=== PATIENT | female | born 1985 | race Caucasian/White ===

== ENCOUNTER 2025-06-23 22:04 | Observation (INO) | payer OTHER, SELFPAY ==
[2025-06-23 18:22] VITALS: BP 113/79
[2025-06-23 18:41] VITALS: BP 123/80
--- NOTE | 2025-06-23 18:51 | ED.GENMED ---
History of Present Illness
General
Chief Complaint: Abnormal Lab Value
Source: patient and spouse
Exam Limitations: none
Time Seen by Provider: 06/23/25 18:37
Nursing documentation reviewed up to this point in time: agreed with
History of Present Illness
History of Present Illness:
Note:
CHIEF COMPLAINT(S)
Fever and body aches
HISTORY OF PRESENT ILLNESS
The patient is a 40-year-old female who presents with fever and body aches following a visit to urgent care on Saturday. She reports having a history of multiple sclerosis, which is currently in remission. The patient last took ibuprofen (Motrin) at
2:40 p.m. and denies experiencing nausea, vomiting, or diarrhea. At the urgent care visit, laboratory results indicated leukopenia and thrombocytopenia. The patient recently traveled to the [facility] approximately three weeks ago but denies any
known tick bites.
PAST MEDICAL AND SURIGICAL HISTORY
The patient has a history of multiple sclerosis in remission.
EXTERNAL RECORDS REVIEWED
According to urgent care records, the patient had low white blood cell count and low platelet levels.
PHYSICAL EXAM
General: No acute distress.
Skin: Warm, dry.
Head: Normocephalic, atraumatic.
Neck: Supple, trachea midline.
Eye Ears, nose, mouth and throat: Oral mucosa moist.
Cardiovascular: Normal peripheral perfusion, no edema.
Respiratory: Respirations are non-labored.
Gastrointestinal: Abdomen nondistended.
Back: Normal range of motion, Normal alignment.
Musculoskeletal: Normal range of motion, normal strength.
Neurological: Alert and oriented to person, place, time, and situation. No focal neurological deficit observed.
Psychiatric: Cooperative, appropriate mood & affect.
PLAN
Evaluation of persistent symptoms suggested, with follow-up on leukopenia and thrombocytopenia possibly related to recent travel history.
DIFFERENTIAL DIAGNOSIS
The Differential Diagnosis includes, in no particular order and is not limited to:
1. Viral infection
2. Bacterial infection
3. Tick-borne illness
4. Medication-induced leukopenia
5. Autoimmune flare
6. Hematological disorder
7. Connective tissue disease
8. Stress-related immune suppression
9. Nutritional deficiency
10. Environmental exposure
Disposition:
SUMMARY OF ENCOUNTER
The patient, a 40-year-old female, was seen in the emergency department due to a fever and body aches that persisted after a visit to urgent care. Initial lab results showed leukopenia and thrombocytopenia following a recent trip to the [facility].
Based on symptoms and travel history, possible tick-borne illness was considered. The decision was made to admit the patient for further observation and treatment. Blood cultures were drawn, and parenteral antibiotics were administered to address
the suspected infection.
DISPOSITION
Admit to hospitalist.
ASSESSMENT
Possible tick-borne illness leading to leukopenia and thrombocytopenia. Other considerations include viral or bacterial infection.
MANAGEMENT OF THE PATIENTS CARE WAS DISCUSSED WITH
Discussion with the infectious disease team regarding tick-borne illness treatment.
PLAN
Admit for close monitoring of symptoms, further evaluation by the infectious disease specialist, and continuation of antimicrobial therapy initiated in the emergency department.
INDEPENDENT REVIEW OF LABS AND INTERPRETATION OF TESTS
My independent review of the CBC indicates leukopenia and thrombocytopenia.
PATIENT EDUCATION AND COUNSELING
The patient was informed about the possibility of a tick-borne illness related to recent travel and the need for hospital admission for further tests and treatment.
MEDICATION RECONCILIATION
Administered parenteral antibiotics in the emergency department.
MEDICAL DECISION MAKING
1. Number and Complexity of Problems Addressed: Chronic conditions affecting care include a history of multiple sclerosis (in remission). Differential diagnosis includes viral infection, bacterial infection, tick-borne illness, medication-induced
leukopenia, autoimmune flare, hematological disorder, connective tissue disease, stress-related immune suppression, nutritional deficiency, and environmental exposure.
2. Data:
Category 1
- Non-emergency department records reviewed. External record reviewed: I reviewed the patients outpatient urgent care records indicating leukopenia and thrombocytopenia.
- Blood cultures were drawn for further evaluation.
Category 3
- Discussion of management with the infectious disease team regarding possible tick-borne illness and treatment.
3. Risk: Prescription medication management was initiated with antibiotics. Hospital admission was necessary for further evaluation and treatment.
DIAGNOSIS
- Leukopenia (ICD-10: D72.819)
- Thrombocytopenia (ICD-10: D69.6)
- Possible Tick-Borne Illness (ICD-10: A68.9)
Phy Exam
Physical Exam
Physical Exam:
.
Course
Orders/Labs/Results
Orders:
Orders
06/23/25 18:49
Electrocardiogram (*1) Urgent
Reason for Study: Vertigo / Dizzy
Comment: assess for conduction delay
Cardiac Monitoring- Treatment ONCE
EKG- Treatment ONCE
06/23/25 18:51
IV Insert/Care/Rem.- Treatment PRN
06/23/25 19:06
Complete Blood Count/With Diff Urgent
Comprehensive Metabolic Panel Urgent
Ehrlichia/Anaplasma by PCR [S] Urgent
Lactic Acid Q4H
Comment: CANCEL 2nd LACTIC ACID IF 1st LACTIC ACID IS LESS THAN 2
Lyme Progressive Urgent
[facility] Spotted Fever IgG&IgM [S] Urgent
Blood Culture Q30M
ORION Source: Blood/Venous
Specimen Description:
Blood Parasites Urgent
ORION Source: Blood/Venous
Specimen Description:
06/23/25 19:41
Blood Culture Q30M
ORION Source: Blood/Venous
Specimen Description:
06/23/25 20:55
Doxycycline [Vibramycin] 100 mg PO NOW STA
Potassium Chloride 10% Elixir [KCl Elixir] 40 meq PO NOW STA
06/23/25 21:29
Admit/Transfer Patient As Directed
Co-Sign Provider:
Level of Care: Observation services
Assign to:: Medical/Surgical
Physician / Group: Carmen
Diagnosis: Fever
PRN Pain Medication Management As Directed
May give lesser potent ordered pain med per pt: Yes
preference::
Protocol:: Medication orders for pain may be administered in a
manner that supports deferring to patient preference
when the pt is:
- Requesting an ordered lesser potent pain medication.
Least to most potent pain medications are defined
as: acetaminophen < NSAID < tramadol < opioids
(morphine, oxycodone, hydromorphone).
- Requesting a lesser dose of the same medication IF
ORDERED.
- Requesting a less intrusive route of administration
if both routes are prescribed by the provider (PO <
IV).
06/23/25 21:30
Code Status As Directed
Resuscitation Status: Full Code
06/23/25 23:00
Lactic Acid Q4H
Comment: CANCEL 2nd LACTIC ACID IF 1st LACTIC ACID IS LESS THAN 2
Abnormal Lab Results
06/23/25
19:06
WBC 1.4 L* 10^3/uL
(4.8-10.8)
Hct 35.1 L %
(37.0-47.0)
Plt Count 54 L 10^3/uL
(130-400)
MPV 12.5 H fL
(7.4-10.4)
Absolute Neuts (auto) 0.8 L* 10^3/uL
(1.4-6.5)
Absolute Lymphs (auto) 0.5 L 10^3/uL
(1.2-3.4)
Immature Gran % 0.7 H %
(0-0.5)
Potassium 3.2 L mmol/L
(3.5-5.1)
Glucose 128 H mg/dl
(70-99)
06/23/25 19:06
06/23/25 19:06
Vital Signs
Initial and Last Documented VS:
Initial Vital Signs
Temp Pulse Resp BP Pulse Ox
98.6 F 91 16 113/79 99
06/23/25 18:22 06/23/25 18:22 06/23/25 18:22 06/23/25 18:22 06/23/25 18:22
Last Documented Vital Signs
Temp Pulse Resp BP Pulse Ox
98.8 F 91 16 108/69 99
06/23/25 18:49 06/23/25 18:22 06/23/25 18:22 06/23/25 19:00 06/23/25 18:56
*Pulse Oximetry
SaO2: 99
Oxygen Mode of Delivery: Room air
Patient hypoxic: no
*Critical Care Note
Total Time (30-74mins, 75-104mins- exclusive of procedures): Not Applicable
ED Attending Note
-
Portions of this chart may have been created with voice recognition software.� Occasional wrong word or��sound alike� substitutions may have occurred due to the inherent limitations of voice recognition software.
Discharge Plan
Departure
Patient Disposition: Admit
Date of Disposition: 06/23/25
Time of Disposition: 20:38
Admit to: Med/Surg
Presentation/result/management discussed w/ accepting MD/DO: Hospitalist
Patient with high blood pressure during this ER visit?: No
Condition: Good
Discharge Problem:
Fever, Neutropenia, Thrombocytopenia
Interventions
Interventions:
*Risk Screen - Suicide Last Done: 06/23/25 18:22
*General Assessment Last Done: 06/23/25 18:54
*Neglect/Abuse Screening Last Done: 06/23/25 18:22
*ED- Fall Risk Assessment Last Done: 06/23/25 18:54
*ED COVID-19 Vaccine History Last Done: 06/23/25 18:54
[2025-06-23 19:00] VITALS: BP 108/69
[2025-06-23 19:10] VITALS: BMI 22.9
[2025-06-23 19:30] LABS: Hematocrit 35.1 % (37.0-47.0); Hemoglobin 12.2 g/dL (12.0-16.0); Mean Corp Hgb Conc. 34.8 g/dL (33.0-37.0); Mean Corpuscular Volume 82.8 fL (81.0-99.0); Red Cell Dist. Width 13.1 % (11.5-14.5)
[2025-06-23 19:49] LABS: ALT (SGPT) 27 U/L (0-35); AST (SGOT) 29 U/L (14-36); Albumin 4.1 g/dl (3.5-5.0); Alkaline Phosphatase 44 U/L (38-126); Blood Urea Nitrogen 10 mg/dl (7-17); Calcium 8.6 mg/dl (8.4-10.2); Carbon Dioxide 25 mmol/L (22-30); Chloride 105 mmol/L (98-107); Estimated Creatinine Clearance 122 ml/min; Glucose 128 mg/dl (70-99); Potassium 3.2 mmol/L (3.5-5.1); Sodium 135 mmol/L (135-145); Total Protein 6.6 g/dl (6.3-8.2); eGFR > 60.00
[2025-06-23 20:00] VITALS: BP 104/64
[2025-06-23 20:26] LABS: Platelet Count 54 10^3/uL (130-400)
[2025-06-23 20:28] LABS: Nucleated Red Blood Cells % 0 %
--- NOTE | 2025-06-23 21:01 | HPS.HSE ---
Family Physician
-
Family Physician:
Chief Complaint
-
leukopenia
History of Present Illness
This is a 40-year-old female with past medical history significant for multiple sclerosis on diroximel fumarate presenting to the emergency department after being found to have neutropenia and thrombocytopenia. She has had fevers for the past 4
days.
She reports a fever to as high as 102 at home. This is associated with this drenching sweats. She reports fatigue. She reports generalized aches. She reported a mild headache but now seems to be of resolved. She denies any neck stiffness. She
denies any confusion lightheadedness or dizziness. She denies any focal weakness.
She had a fever again today and took ibuprofen with defervescence. She followed up at urgent care because she was not feeling well and was found to have leukopenia and thrombocytopenia. She had a negative COVID test, negative flu and negative
influenza testing. Lyme progressive panel was drawn and patient sent to the emergency department.
She has been in the [facility] 3 weeks ago stayed at hotel there. There is no concern for tickborne illness but there is no rash. No other evidence. She travels frequently but not out of the country or out of the country or eastern .
In the emergency department she was afebrile, blood pressure was 108/69 with a pulse rate of 91 and she is satting 99% on room air. ECG shows a normal sinus rhythm at rate of 83. White count of 1.4 with absolute neutrophil count of 0.8, platelet
count 154, hemoglobin was normal. No electrolyte interval for a potassium of 3.2 but otherwise unremarkable. BUN/creatinine were normal. Glucose was normal. LFTs were normal. Lactic acid was normal.
Medical History
Past Medical History
Past Medical History: Reports Other (Multiple sclerosis)
Past Surgical History: Reports None
Social History
Tobacco: Non-smoker
Alcohol: None
Drug: None
Personal:
Living: With Family
Family History
Family History: Not pertinent
Allergies / Home Medications
Allergies reflects when Allergies were last updated in [facility].
Home Medications with original date entered in [facility]
Allergy/Medication List:
Allergies
Allergy/AdvReac Type Severity Reaction Status Date / Time
No Known Allergies Allergy Unverified 06/23/25 18:22
Home Medications
cholecalciferol (vitamin D3) 125 mcg (5,000 unit) tablet (Vitamin D3) 125 mcg PO DAILY 06/23/25
diroximel fumarate 231 mg capsule,delayed release (Vumerity) 462 mg PO BID 06/23/25
ibuprofen 200 mg tablet (Advil) 400 mg PO Q6HPRN PRN mild pain 06/23/25
Review of Systems
-
Constitutional: Reports Fever and Chills
EENT: Reports No Symptoms
Respiratory: Reports No Symptoms
Cardiac: Reports No Symptoms
Abdomen/GI: Reports No Symptoms
: Reports No Symptoms
Musculoskeletal: Reports No Symptoms
Skin: Reports No Symptoms
Neurological: Reports No Symptoms
Endocrine: Reports No Symptoms
Hematologic/Lymphatic: Reports No Symptoms
Psych: Reports No Symptoms
Physical Exam
Vital Signs
Vital Signs
Temp Pulse Resp BP Pulse Ox
98.8 F 91 16 108/69 99
06/23/25 18:49 06/23/25 18:22 06/23/25 18:22 06/23/25 19:00 06/23/25 18:56
Physical Exam
General: Well Developed, Well Nourished and No Apparent Distress
HEENT: NormoCephalic, Moist mucous membranes and Atraumatic
Respiratory: Clear
Cardiac: S1/S2 and Regular Rhythm; No Murmur or Rub
GI: Soft, Non Tender, Non Distended and Normal Bowel Sounds; No Organomegaly
Rectal: Deferred by Provider
Musculoskeletal: No Clubbing, No Cyanosis and No Edema
Skin: No Rash
Neuro: Nonfocal/grossly intact
Laboratory Results
-
06/23/25 19:06
06/23/25 19:06
Laboratory Results
Lactic Acid 0.8 mmol/L (0.7-2.0) 06/23/25 19:06
Total Bilirubin 0.6 mg/dl (0.2-1.3) 06/23/25 19:06
AST 29 U/L (14-36) 06/23/25 19:06
ALT 27 U/L (0-35) 06/23/25 19:06
Alkaline Phosphatase 44 U/L (38-126) 06/23/25 19:06
Data Reviewed
-
Lab Data: Labs Reviewed by me
Old Records: Reviewed
Impression/Plan
-
IMPRESSION:
40-year-old generally healthy who has past medical history significant for MS for which she is on Diroximel for the last 5 years, had normal CBC within the last 3 months presenting to the emergency department with fever leukopenia and
thrombocytopenia. She was recently in the [facility] ago. She has no rash or joint swelling. She is generally well-appearing. No obvious sick contacts. No respiratory, GI or symptoms. Suspect tickborne illness was also a viral
illness with myelosuppression. LFT WNL.
PLAN:
1. Fever of unknown source w/ suspicion for tick borne illness.
- admit to med/surg observation
- blood cx
- sent insect borne parasite/bacteria panel
- neutropenic precautions
- started doxycycline 100 bid
- continue diroximel for now (associated with lymphopenia (previously normal) but not pancytopenia)
- ID consulted and following
DVT PPX - SCD
Code status - Full Code
[2025-06-23] MEDS: KCL ELIXIR 40 MEQ PO (22:03)
[2025-06-23] MEDS: VIBRAMYCIN 100 MG PO (22:04)
[2025-06-24 02:14] VITALS: BP 104/68
[2025-06-24 06:09] VITALS: BP 101/71
[2025-06-24 06:35] LABS: Hematocrit 32.3 % (37.0-47.0); Hemoglobin 11.2 g/dL (12.0-16.0); Mean Corp Hgb Conc. 34.7 g/dL (33.0-37.0); Mean Corpuscular Volume 83.2 fL (81.0-99.0); Red Cell Dist. Width 13.2 % (11.5-14.5)
[2025-06-24 07:12] LABS: Platelet Count 46 10^3/uL (130-400)
--- NOTE | 2025-06-24 08:02 | W.PN.HOSP.TC ---
Today's Communication/Plan
-
See PN
Assessment / Plan
Assessment / Plan
40yo F with PMHx MS on Diroximel Fumarate came with 3 days of generalized aches, nighttime sweats and fever without respiratory symptoms. Due to recent travel history to [facility] - concern brought up for tick-borne illness due to leukopenia and
thrombocytopenia findings.
A/P:
#Fever, muscle aches, leukopenia, thrombocytopenia
Concern for tick borne illness: Lyme, anaplasma, Ehrlichia, rickettsia serology pending
Penidng Parasite screen
Check LDH, CPK
With patient considered immunosuppressed - complete workup with UA, Chest XR, covid-19 and influenza PCR
Doxycycline pending further results
neutropenic precautions
follow CBC
#Hypokalemia
repleted on admission
follow electrolytes
#MS
patient mentioned that some of her pains similar to her episodes of MS flare
Original Neurologist in [place]
Neuro consult
DVT ppx SCDs
Full code
I have spent at least 55 min reviewing chart, test results, communication with consultants and providing direct patient care
Anticipated Discharge: 24 - 48 hours
Subjective/Interval History
-
Date of Service: June 24, 2025
Objective Data
-
Labs:
Laboratory Results
06/23/25 06/24/25 06/24/25
19:06 06:20 07:08
WBC 1.4 L*
Hgb 11.2 L
Hct 32.3 L
Plt Count 54 L 46 L
Sodium Cancelled Pending
Potassium Cancelled Pending
Chloride Cancelled Pending
Carbon Dioxide Cancelled Pending
BUN Cancelled Pending
Creatinine Cancelled Pending
Glucose Cancelled Pending
Calcium Cancelled Pending
Vital Signs:
Vital Signs
Temp Pulse Resp BP Pulse Ox
98.3 F 78 14 101/71 99
06/24/25 07:36 06/24/25 06:15 06/24/25 06:15 06/24/25 06:09 06/23/25 18:56
Review of Systems
-
History Source: Patient
All other systems: Reviewed and negative
Constitutional: Reports Fever
Musculoskeletal: Reports Muscle Pain
Physical Exam
-
General: Comfortable
HEENT: Normocephalic
Respiratory: Clear to Auscultation
Cardiac: Regular Rhythm
GI: Soft, Nontender and Nondistended
Neuro: Awake, Alert, Oriented and AO x 3
Psych: Calm
[2025-06-24] MEDS: VIBRAMYCIN 100 MG PO ×2 (08:08→21:04)
[2025-06-24 08:39] LABS: COVID-19 Antigen Negative (Negative)
--- NOTE | 2025-06-24 08:40 | CON.NEURO4 ---
Addendum entered and electronically signed by Emir Arriaga MD 06/25/25 07:37:
Studies reviewed.
I have personally examined the patient. I reviewed and agree with the RFID ANALYST's Note.
My addenda:
Awake, alert, interactive. No acute distress.
Speech intact.
Follows 2-step requests w/o difficulty. No tremor.
Extra-ocular movements grossly intact.
Facial movements full and symmetric. Hearing intact to normal conversational volume.
Normal UE movements bilaterally.
Neck: full ROM.
Chest: no dyspnea
Heart: no JVD
Ext: (-) Clubbing, (-) Cyanosis, (-) Edema
IMPRESSIONS/RECOMMENDATIONS:
Abrupt onset of fever in a patient with previously diagnosed multiple sclerosis involving lesions intracranially and cervical spine. Patient is JCV positive
Sense of sensation changes are most likely related to a pseudo exacerbation
Possible that the patient's pancytopenia is secondary to medication although this is unclear that longstanding use of diroximel fumarate would produce this
Hold diroximel fumarate
Utilize new medication anti-MS medication as outpatient ~ 1 week after return of normal cell counts
Not clear patient would need new MRIs
Check blood work for sensation changes
Patient advised to contact usual outpatient neurologist to determine what next medication would be
D/W patient
All questions answered.
Will continue to follow peripherally
Original Note:
Consultation - Neurology 4
-
CONSULTING PHYSICIAN: Emir Arriaga MD
REFERRING PHYSICIAN: Hospitalists/Dr. Bills
DICTATED BY: IBAN Harper
DATE/TIME OF REQUEST: 06/24/25
DATE/TIME OF CONSULTATION: 06/24/25
Reason for Consultation: Concern for MS exacerbation
History of Present Illness:
This is a 40-year-old right-handed female who has presented to the hospital on 06/24/25 with report of fevers and exacerbation of multiple sclerosis symptoms. Patient is followed as an outpatient by [facility] FERRERA/Dr. Pal
[facility] for multiple sclerosis. She reports having several years of back pain, intermittent numbness in her lower extremities, and Lhermitte's sign prior to being diagnosed with multiple sclerosis in 2016. She reports her initial neurological
imaging demonstrated several brain and spine lesions. She was initially on Copaxone and then stopped this to have another child, and subsequently started taking Vumerity in 2020 after the of her child. She occasionally has flushing when she
takes her Vumerity, taking it with food helps avoid this. She does not take aspirin with it. She currently only experiences her previous symptoms of shooting pains in her legs when she is sick. She is due to brain, cervical, and thoracic spine
imaging in August. Her previous several years of surveillance imaging was completed without contrast only.
Patient reports she traveled to the [facility] about three weeks ago. She denies any rashes or bug bites and was in her usual state until four days ago on 06/20/25 when she woke up with body aches. She thought it was due to biking the previous day
but then she developed a fever later in the day. She notes that her fever persisted and she was having shock-like pains in her legs concerning for her previous MS symptoms, so she presented to urgent care for evaluation. They lisset blood work and the
results showed that her WBC count and lymphocyte count were low, so they sent her to the ER for evaluation. WBC count on arrival is 1.4, abs neutrophils 0.8, abs lymphs 0.5, and platelets 56. Reviewing her outpatient medical records, her WBC count
in 2021 was 3, and in 2023 it was 5. Patient reports that today (06/24/25) she is feeling much better and her fevers have resolved. She denies any headache, neck/back pain, vision changes, speech/swallow difficulty, numbness, and weakness.
Past Medical History: Multiple sclerosis
Surgical History: Denies.
Family History: Reviewed and noncontributory.
Social History: Denies tobacco, alcohol, and illicit drug use.
Allergies: No known allergies.
Home Medications: See below.
Review of Symptoms:
Patient denies any fever, headache, chest pain, shortness of breath, GI or symptoms.
�Per the HPI.�All systems are reviewed negative except above.
Physical Exam:
The patient is afebrile, abdomen is nondistended, breathing is unlabored, skin is warm and dry, no edema.
Neurologic Examination:
The patient is awake, alert and oriented x 3. She is able to follow commands and answer questions appropriately. There is no aphasia or dysarthria. On cranial nerve assessment, pupils are 3 mm bilateral, round and reactive to light and
accommodation. Visual jauregui are full. Extraocular movements are intact. Facial sensations are intact and bilaterally symmetrical, there is no facial asymmetry. Hearing is intact bilaterally to normal conversation volume. Tongue palate and uvula are
midline. Sternocleidomastoid strengths are full bilaterally. Motor strengths are 5/5 bilateral upper and lower extremities on medical research [place] scale. There is no drift or involuntary movement noted. Deep tendon reflexes are 2+ bilateral
upper and lower extremities and Babinski is absent bilaterally. Sensation of vibration is absent in distal bilateral lower extremities. Coordination is intact by finger to nose bilaterally. Romberg is negative.
Lab Results: See below.
Neuro Imaging: None.
Differentials for the patient's presentation include:
1. Infection exacerbating chronic multiple sclerosis symptoms, no concern for MS flare.
2. Vumerity usage possibly contributing to abnormal lymphocyte; however, given low platelet count, greater concern for an infection producing hematology changes.
Patient has the following risk factors for their symptoms: MS, Vumerity usage, infection
Recommendations:
-Reviewed case with outpatient Neurology provider IBAN Hills, instructed patient to hold Vumerity for one week.
-Infection workup per ID.
-No role for further Neurological imaging at this point.
-Follow-up as an outpatient with usual Neurologist.
Discussed patient care with: Dr. Arriaga, the patient
Vital Signs and Labs
-
Vital Signs and Labs:
Vital Signs
Temp Pulse Resp BP Pulse Ox
98.3 F 78 14 101/71 99
06/24/25 07:36 06/24/25 06:15 06/24/25 06:15 06/24/25 06:09 06/23/25 18:56
Lab Results
06/24/25 06:20
Sodium Cancelled 06/24/25 06:20
Potassium Cancelled 06/24/25 06:20
BUN Cancelled 06/24/25 06:20
Glucose Cancelled 06/24/25 06:20
Calcium Cancelled 06/24/25 06:20
Medications
-
Medications:
Generic Name Dose Route Start Last Admin
Trade Name Freq PRN Reason Stop Dose Admin
Acetaminophen 650 mg 06/24/25 00:21
Acetaminophen 325 Mg Tablet PO 07/22/25 00:20
Q4HPRN PRN
mild pain/BRUNO/temp> 100.4F
Bisacodyl 10 mg 06/24/25 00:21
Bisacodyl 10 Mg Rectal Suppository RECTAL 07/22/25 00:20
[id number] PRN
constipation
Cholecalciferol 125 mcg 06/24/25 08:00
Cholecalciferol (Vitamin D3) 125 Mcg Tablet (5,000 Units) PO 07/22/25 07:59
DAILY PELON
Doxycycline Hyclate 100 mg 06/24/25 08:00 06/24/25 08:08
Doxycycline 100 Mg Capsule PO 100 mg
Q12 PELON Administration
Ketorolac Tromethamine 10 mg 06/24/25 00:21
Ketorolac 15 Mg/Ml Injection IV 06/29/25 00:20
Q6HPRN PRN
moderate pain
Ondansetron HCl 4 mg 06/24/25 00:21
Ondansetron 4 Mg/2 Ml Vial IV 07/22/25 00:20
Q6HPRN PRN
nausea and vomiting
Polyethylene Glycol 17 grams 06/24/25 00:21
Polyethylene Glycol Powder 17 Grams Packet PO 07/22/25 00:20
DAILYPRN PRN
constipation
Senna/Docusate Sodium 1 tablet 06/24/25 00:21
Docusate W/Senna ([place]-Colace) Tablet PO 07/22/25 00:20
BIDPRN PRN
constipation
Sodium Chloride 0 flush 06/24/25 01:00
Sodium Chloride 0.9% (Flush) Syringe IV 07/22/25 00:59
PER PROTOCOL PELON
[2025-06-24] MEDS: VITAMIN D3 (cholecalciferol) 125 MCG PO (08:55)
[2025-06-24 09:18] LABS: Blood Urea Nitrogen 6 mg/dl (7-17); Calcium 8.8 mg/dl (8.4-10.2); Carbon Dioxide 28 mmol/L (22-30); Chloride 105 mmol/L (98-107); Estimated Creatinine Clearance 122 ml/min; Glucose 132 mg/dl (70-99); LDH 247 U/L (120-246); Magnesium 1.7 mg/dl (1.6-2.3); Potassium 3.8 mmol/L (3.5-5.1); Sodium 137 mmol/L (135-145); eGFR > 60.00
--- NOTE | 2025-06-24 10:23 | CON.ID ---
Consultation
-
Date/Time Consultation Requested: 06/24/2025 0021
Date/Time Consultation Performed: 06/24/2025 0920
Requesting Provider: Dr. Morales
Performing Provider: Dr. Hodges
Reason for Consultation: Fever; leukopenia
Chief Complaint / Past History
History of Present Illness
Ivonne Mendez is a 40-year-old female with a significant past medical history of multiple sclerosis being evaluated at the request of Dr. Morales regarding fever and leukopenia. History is obtained from chart review, along with patient interview.
Additional history was obtained from the patient's who is present in the room.
The patient notes that she is on diroximel for underlying multiple sclerosis, which she notes is in remission. Approximately 3 weeks ago she and her traveled to the [facility], where they engaged in kayaking, swimming in [place] and [place],
along with hiking. They did not note any tick bites during that time. In the interim, she has noted no rashes. 5 days ago she and her went on a 20 mile bike ride without any issues. Four days ago she notes that she developed chills,
sweats, generalized body ache and fatigue. She checked her temperature and she found it to be 101 degrees. She took Motrin and felt better. The next day she continued to feel feverish, although she did not take her temperature. She notes that
she did lay on the couch for quite a bit of the day. Two days ago she continued to feel unwell and called out of work. She continued with fevers and chills. Yesterday she was seen at an urgent care center where blood work was performed which
showed that she was leukopenic. She was sent to the emergency room for further evaluation. Here, initial blood work showed a white count of 1.4, with an ANC of 800. Infectious Diseases asked to comment upon further workup.
Her notes that they do have ticks in the yard. No pets.
Past History
Additional Past Medical History:
Multiple sclerosis
Past Surgical History: None
Allergy History:
No Known Allergies Allergy (Unverified 06/23/25 18:22)
Medications Reviewed: Yes
Current Antibiotics:
Doxycycline 100 mg PO BID
Social History
Tobacco: Non-Smoker
Alcohol: None
Drug: None
Personal:
Living: With Family
Employment: Employed (Dental hygienist)
Review of Systems
Vital Signs
Temp Pulse Resp BP Pulse Ox
98.3 F 78 14 101/71 99
06/24/25 07:36 06/24/25 06:15 06/24/25 06:15 06/24/25 06:09 06/23/25 18:56
Physical Exam
Physical Exam
Constitutional: No Acute Distress, Comfortable and Non-toxic
Head: Normocephalic
Eyes: No Conjunctival Hemorrhage and Sclera Anicteric
Oral: No Thrush and No Ulcers
Lymph Nodes: Negative Lymphadenopathy
Cardiovascular: Regular Rate and S1/S2; Negative S3/S4
Pulmonary: Clear; Negative Wheezes, Rales or Rhonchi
Gastrointestinal: Soft, Non Tender, Non Distended, Normal Bowel Sounds, No Rebound and No Guarding
Genito-Urinary: Negative Castro or CVA Tenderness
Extremities: Negative Edema, Cyanosis, Erythema, Splinter Hemorrhage, Venous Insufficiency or Janeway Lesions
Musculoskeletal: Negative Joint Swelling or Joint Effusion
Skin: Warm and Dry; Negative Rash or Jaundice
Neurological: Awake and Alert
Psychological: Calm
Lab / Diagnostic Study Results
06/24/25 06:20
06/24/25 08:03
Abs Immat Gran (auto) 0.0 10^3/uL (0-0.05) 06/23/25 19:06
Absolute Neuts (auto) 0.8 10^3/uL (1.4-6.5) L* 06/23/25 19:06
Absolute Lymphs (auto) 0.5 10^3/uL (1.2-3.4) L 06/23/25 19:06
Absolute Monos (auto) 0.1 10^3/uL (0.1-0.6) 06/23/25 19:06
Absolute Basos (auto) 0.0 10^3/uL (0-0.2) 06/23/25 19:06
Immature Gran % 0.7 % (0-0.5) H 06/23/25 19:06
Neutrophils % 53.1 % (42.2-75.2) 06/23/25 19:06
Lymphocytes % 37.8 % (20.5-51.1) 06/23/25 19:06
Monocytes % 8.4 % (1.7-9.3) 06/23/25 19:06
Eosinophils % 0.0 % (0-6) 06/23/25 19:06
Basophils % 0.0 % (0-2) 06/23/25 19:06
Lactic Acid Cancelled 06/23/25 23:00
Microbiology Results
Micro:
06/24/25 08:03 Influenza Types A & B (CLAUDIO) - Final
Nasal Swab Negative for Influenza A & B, NAAT
Negative results must be combined with clinical observations
and patient history.
Nucleic Acid Amplification test (NAAT)performed on the
[employer] platform.
06/23/25 19:06 Blood Parasites Smear - Preliminary
Blood/Venous No blood parasites seen.
06/23/25 19:41 Blood Culture - Pending
Blood/Venous
06/23/25 19:06 Blood Culture - Pending
Blood/Venous
Assessment / Plan
Fever
Leukopenia/febrile neutropenia
Hx MS
Recommendations:
Case was discussed with ER physician last evening. Patient has been started on doxycycline for presumptive treatment of tickborne illness.
Peripheral blood smear is negative for Babesia species.
Ehrlichia and Anaplasma serology and PCR is pending.
Patient has remained afebrile since presentation.
Continue with doxycycline for now.
Follow white count and temperature curve. Repeat blood cultures for fever greater than 100.5 degrees.
Should the patient develop further fevers, will broaden antibiotic coverage.
Diroximel has been held.
[2025-06-24 10:43] LABS: Vitamin D, 25-OH*** 64.2 ng/mL (30-80)
[2025-06-24 10:59] LABS: Ferritin 140.0 ng/ml (6.24-137)
[2025-06-24 11:06] LABS: Urine Character Clear (Clear)
[2025-06-24 11:23] LABS: Urine Squamous Cell >30 /LPF (Few)
[2025-06-24 11:24] LABS: Urine Urothelial Cell 0-2 /LPF (FEW)
[2025-06-24 11:25] LABS: Urine Red Blood Cell 0-2 /HPF (0-2)
[2025-06-24 11:30] LABS: Folate 16.4 ng/ml (2.76-20); Vitamin B12 462 pg/ml (239-931)
[2025-06-24 12:47] VITALS: BP 109/69
[2025-06-24 12:48] VITALS: BMI 22.1
[2025-06-24 12:54] LABS: Lyme Antibody Screen, EIA Negative (Negative)
--- NOTE | 2025-06-24 13:15 | PTCARENOTE ---
[facility], ambulated to bed in room 334. VS taken, pt oriented to room, assessment completed, pt with no current complaints, and at bedside. Plan of care ongoing.
[2025-06-24 15:02] VITALS: BP 108/71
[2025-06-24 23:06] VITALS: BP 125/96
--- NOTE | 2025-06-25 07:29 | W.PN.NEURO.1 ---
Today's Communication / Plan
-
Discontinue diroximel fumarate
Utilize new medication anti-MS medication as outpatient ~ 1 week after return of normal cell counts
Not clear patient would need new MRIs
Patient advised to contact usual outpatient neurologist to determine what next medication would be
Neuro Assessment/Plan
Assessment
Possible that the patient's pancytopenia is secondary to medication although this is unclear that longstanding use of diroximel fumarate would produce this
Plan
Hold diroximel fumarate
Utilize new medication anti-MS medication as outpatient ~ 1 week after return of normal cell counts
Not clear patient would need new MRIs
Check blood work for sensation changes
Patient advised to contact usual outpatient neurologist to determine what next medication would be
Will continue to follow peripherally
Subjective/Objective
Subjective Data
Date of Service: June 25, 2025
Objective Data
Vital Signs
Temp Pulse Resp BP Pulse Ox
36.5 C 93 16 125/96 99
06/24/25 23:06 06/24/25 23:06 06/24/25 23:06 06/24/25 23:06 06/24/25 23:06
Sodium 137 mmol/L (135-145) 06/24/25 08:03
Potassium 3.8 mmol/L (3.5-5.1) 06/24/25 08:03
BUN 6 mg/dl (7-17) L 06/24/25 08:03
Glucose 132 mg/dl (70-99) H 06/24/25 08:03
Calcium 8.8 mg/dl (8.4-10.2) 06/24/25 08:03
Vitamin B12 Cancelled 06/24/25 08:43
Patient Allergies
No Known Allergies Allergy (Unverified 06/23/25 18:22)
Data Reviewed
-
Labs: Report Reviewed
Reviewed with: Nurse Practioner
Old Records: Summarized
Past History
Past History
ED Past Medical History: Other (Multiple sclerosis)
ED Past Surgical History: None
Social History
Tobacco: Non-smoker
Alcohol: None
Personal:
Living: with family
Family History
Family History: Other (Reviewed and noncontributory)
Medications
-
Medications:
Generic Name Dose Route Start Last Admin
Trade Name Freq PRN Reason Stop Dose Admin
Acetaminophen 650 mg 06/24/25 00:21
Acetaminophen 325 Mg Tablet PO 07/22/25 00:20
Q4HPRN PRN
mild pain/BRUNO/temp> 100.4F
Bisacodyl 10 mg 06/24/25 00:21
Bisacodyl 10 Mg Rectal Suppository RECTAL 07/22/25 00:20
[id number] PRN
constipation
Cholecalciferol 125 mcg 06/24/25 08:00 06/24/25 08:55
Cholecalciferol (Vitamin D3) 125 Mcg Tablet (5,000 Units) PO 07/22/25 07:59 125 mcg
DAILY PELON Administration
Doxycycline Hyclate 100 mg 06/24/25 08:00 06/24/25 21:04
Doxycycline 100 Mg Capsule PO 100 mg
Q12 PELON Administration
Ketorolac Tromethamine 10 mg 06/24/25 00:21
Ketorolac 15 Mg/Ml Injection IV 06/29/25 00:20
Q6HPRN PRN
moderate pain
Ondansetron HCl 4 mg 06/24/25 00:21
Ondansetron 4 Mg/2 Ml Vial IV 07/22/25 00:20
Q6HPRN PRN
nausea and vomiting
Polyethylene Glycol 17 grams 06/24/25 00:21
Polyethylene Glycol Powder 17 Grams Packet PO 07/22/25 00:20
DAILYPRN PRN
constipation
Senna/Docusate Sodium 1 tablet 06/24/25 00:21
Docusate W/Senna ([place]-Colace) Tablet PO 07/22/25 00:20
BIDPRN PRN
constipation
Sodium Chloride 0 flush 06/24/25 01:00
Sodium Chloride 0.9% (Flush) Syringe IV 07/22/25 00:59
PER PROTOCOL PELON
--- NOTE | 2025-06-25 07:30 | PTCARENOTE ---
Critical Lab reporting: Gram Positive Cocci in Clusters in Aerobic BC Bottle. Notified attending provider Cleveland Bills MD through [facility] [employer].
[2025-06-25 07:35] VITALS: BP 105/71
[2025-06-25 08:08] LABS: Hematocrit 34.6 % (37.0-47.0); Hemoglobin 11.6 g/dL (12.0-16.0); Mean Corp Hgb Conc. 33.5 g/dL (33.0-37.0); Mean Corpuscular Volume 84.6 fL (81.0-99.0); Platelet Count 61 10^3/uL (130-400); Red Cell Dist. Width 13.2 % (11.5-14.5)
[2025-06-25 08:29] LABS: ALT (SGPT) 29 U/L (0-35); AST (SGOT) 24 U/L (14-36); Albumin 3.9 g/dl (3.5-5.0); Alkaline Phosphatase 34 U/L (38-126); Blood Urea Nitrogen 12 mg/dl (7-17); Calcium 9.1 mg/dl (8.4-10.2); Carbon Dioxide 28 mmol/L (22-30); Chloride 106 mmol/L (98-107); Estimated Creatinine Clearance 122 ml/min; Glucose 100 mg/dl (70-99); Potassium 4.1 mmol/L (3.5-5.1); Sodium 140 mmol/L (135-145); Total Protein 6.4 g/dl (6.3-8.2); eGFR > 60.00
[2025-06-25] MEDS: VIBRAMYCIN 100 MG PO ×2 (08:41→20:40)
[2025-06-25] MEDS: VITAMIN D3 (cholecalciferol) 125 MCG PO (08:41)
[2025-06-25 08:49] LABS: Nucleated Red Blood Cells % 0 %
--- NOTE | 2025-06-25 09:35 | CON.ONC ---
Documented by User: Lucille Waldrop MD, Resident 06/25/25 11:52
Consultation
-
Date Consultation Requested: 06/25/25
Date Consultation Performed: 06/25/25
Requesting Provider: Dr. Cleveland Bills
Performing Provider: Dr. Blayne Rudolph
Reason for Consultation: pancytopenia
Impression
Impression
Fever
Pancytopenia
Neutropenia -absolute neutrophil count 0.8
Muscle aches
Hypokalemia
MS
WOOD virus positive
Plan
Plan
--Follow CBC
--Follow cultures
--Possible side effect of diroximel - d/c and start different med per neuro
--Cont doxy for concern of tick born illness
--Recommend CBC weekly over the next couple of weeks upon d/c. If no improvement, may need a bone marrow biopsy. As counts are currently improving, likely not an acute bone marrow etiology.
Patient History
History of Present Illness
40-year-old female past medical history of MS on diroximel presents to the ED with neutropenia, thrombocytopenia and 4 days of fevers. She had been having fevers, chills, sweats, generalized aches for the past 4 days with fevers up to 102. She
went to urgent care for further evaluation. COVID and flu testing was negative. Labs were drawn and found to have leukopenia and thrombocytopenia at which point they recommended for her to come to the ED. Of note, she has been in the [place]
for the past 3 weeks with extensive time outdoors. She denies any rash, found tick. She denies any confusion, lightheadedness, focal weakness, nausea, vomiting, diarrhea. She denies any history of abnormal blood counts, family history of blood
related illnesses. CBC in 02/26 was normal with WBC 5.0, hg 12.3, plt 156, ANC 3.2.
In the ED, she was afebrile vital signs stable. EKG was normal sinus rhythm. Chest x-ray was unremarkable. WBC 1.4, absolute neutrophil count 0.8, absolute lymphocyte count 0.5, platelet count 54, hemoglobin 12.2. Potassium 3.2, LDH 247, LFTs
within normal limits. Blood cultures, tick panel and parasite smear were taken. She was started on doxy for suspected tick born etiology, ID and neurology were consulted and she was admitted for fever of unknown origin. Neurology noted she was WOOD
virus (+) in the past and recommended holding diroximel as it can be associated with pancytopenia. ID recommended to follow the cultures and continue doxy.
Past-Medical/Surgical History
Past medical history: MS
Past surgical history: none
Family history: paternal grandfather testicular cancer
Patient Medication
�Medication �Instructions �Recorded �Confirmed �Last Taken �Type
cholecalciferol (vitamin D3) 125 125 mcg PO DAILY 06/23/25 06/23/25 06/23/25 History
mcg (5,000 unit) tablet (Vitamin
D3)
diroximel fumarate 231 mg 462 mg PO BID 06/23/25 06/23/25 06/23/25 History
capsule,delayed release (Vumerity)
ibuprofen 200 mg tablet (Advil) 400 mg PO Q6HPRN PRN mild pain 06/23/25 06/23/25 06/23/25 History
Active Medications
Generic Name Dose Route Start Last Admin
Trade Name Freq PRN Reason Stop Dose Admin
Acetaminophen 650 mg 06/24/25 00:21
Acetaminophen 325 Mg Tablet PO 07/22/25 00:20
Q4HPRN PRN
mild pain/BRUNO/temp> 100.4F
Bisacodyl 10 mg 06/24/25 00:21
Bisacodyl 10 Mg Rectal Suppository RECTAL 07/22/25 00:20
[id number] PRN
constipation
Cholecalciferol 125 mcg 06/24/25 08:00 06/25/25 08:41
Cholecalciferol (Vitamin D3) 125 Mcg Tablet (5,000 Units) PO 07/22/25 07:59 125 mcg
DAILY PELON Administration
Doxycycline Hyclate 100 mg 06/24/25 08:00 06/25/25 08:41
Doxycycline 100 Mg Capsule PO 100 mg
Q12 PELON Administration
Ketorolac Tromethamine 10 mg 06/24/25 00:21
Ketorolac 15 Mg/Ml Injection IV 06/29/25 00:20
Q6HPRN PRN
moderate pain
Ondansetron HCl 4 mg 06/24/25 00:21
Ondansetron 4 Mg/2 Ml Vial IV 07/22/25 00:20
Q6HPRN PRN
nausea and vomiting
Polyethylene Glycol 17 grams 06/24/25 00:21
Polyethylene Glycol Powder 17 Grams Packet PO 07/22/25 00:20
DAILYPRN PRN
constipation
Senna/Docusate Sodium 1 tablet 06/24/25 00:21
Docusate W/Senna (Geenva-Colace) Tablet PO 07/22/25 00:20
BIDPRN PRN
constipation
Sodium Chloride 0 flush 06/24/25 01:00
Sodium Chloride 0.9% (Flush) Syringe IV 07/22/25 00:59
PER PROTOCOL PELON
Review of Systems
-
History Source: Patient
Constitutional: Reports No Symptoms
EENT: Reports No Symptoms
Respiratory: Reports No Symptoms
Cardiac: Reports No Symptoms
GI: Reports No Symptoms
Musculoskeletal: Reports No Symptoms
Neuro: Reports No Symptoms
Hematologic/Lymphatic: Reports No Symptoms
Physical Exam
-
General: No Apparent Distress and Comfortable
Cardiology: Normal Sinus Rhythm, S1 and S2
Pulmonary: Clear
GI: Soft and Normal Bowel Sounds
Musculoskeletal: No Cyanosis and No Edema
Skin: Warm and Dry
Psych: Calm
Labs
Lab Results
WBC 3.4 10^3/uL (4.8-10.8) L 06/25/25 07:43
RBC 4.09 10^6/uL (4.20-5.40) L 06/25/25 07:43
Hgb 11.6 g/dL (12.0-16.0) L 06/25/25 07:43
Hct 34.6 % (37.0-47.0) L 06/25/25 07:43
MCV 84.6 fL (81.0-99.0) 06/25/25 07:43
MCH 28.4 pg (27.0-31.0) 06/25/25 07:43
MCHC 33.5 g/dL (33.0-37.0) 06/25/25 07:43
RDW 13.2 % (11.5-14.5) 06/25/25 07:43
Plt Count 61 10^3/uL (130-400) L D 06/25/25 07:43
MPV 13.0 fL (7.4-10.4) H 06/25/25 07:43
Abs Immat Gran (auto) 0.0 10^3/uL (0-0.05) 06/25/25 07:43
Absolute Neuts (auto) 0.8 10^3/uL (1.4-6.5) L* 06/25/25 07:43
Absolute Lymphs (auto) 2.2 10^3/uL (1.2-3.4) 06/25/25 07:43
Absolute Monos (auto) 0.4 10^3/uL (0.1-0.6) 06/25/25 07:43
Absolute Eos (auto) 0.0 10^3/uL (0-0.7) 06/25/25 07:43
Absolute Basos (auto) 0.0 10^3/uL (0-0.2) 06/25/25 07:43
Immature Gran % 0.3 % (0-0.5) 06/25/25 07:43
Neutrophils % 22.2 % (42.2-75.2) L 06/25/25 07:43
Lymphocytes % 64.4 % (20.5-51.1) H 06/25/25 07:43
Monocytes % 12.2 % (1.7-9.3) H 06/25/25 07:43
Eosinophils % 0.3 % (0-6) 06/25/25 07:43
Basophils % 0.6 % (0-2) 06/25/25 07:43
Creatinine 0.6 mg/dL (0.6-1.0) 06/25/25 07:43
Vital Signs
Vital Signs
Temp Pulse Resp BP Pulse Ox
97.8 F 76 18 105/71 97
06/25/25 07:35 06/25/25 07:35 06/25/25 07:35 06/25/25 07:35 06/25/25 07:35

Documented by User: Blayne Rudolph MD 06/25/25 13:57
Plan
Plan
--Follow CBC
--Follow cultures
--Possible side effect of diroximel - d/c and start different med per neuro
--Cont doxy for concern of tick born illness
--Recommend CBC weekly over the next couple of weeks upon d/c. If no improvement, may need a bone marrow biopsy. As counts are currently improving, likely not an acute bone marrow etiology.
Hematology Addendum:
Patient seen and evaluated w/ resident
-leukopenia/ neutropenia and thrombocytopenia - w/ concern for possible tick bourne illness vs. reaction to MS medication vs. other
-reviewed recent CBCs in detail
-today's CBC appears improved on doxycycline - both lymphocytes and monocytes appear to be recovering - hemoglobin and platelet count slightly better
-discussed concern for cytopenias related to acute infection/ inflammation and need for continued monitoring
-if CBC does not recover - could consider diagnostic bone marrow aspiration and biopsy
Will continue to follow with you.
--- NOTE | 2025-06-25 10:48 | W.PN.HOSP.TC ---
Today's Communication/Plan
-
repeat Bcx
cont doxy pedning ID
Hematology consult
Assessment / Plan
Assessment / Plan
40yo F with PMHx MS on Diroximel Fumarate came with 3 days of generalized aches, nighttime sweats and fever without respiratory symptoms. Due to recent travel history to [facility] - concern brought up for tick-borne illness due to leukopenia and
thrombocytopenia findings.
A/P:
#Fever, muscle aches, leukopenia, thrombocytopenia
Concern for tick borne illness: anaplasma, Ehrlichia, rickettsia serology pending
Parasite screen neg
Lyme Neg
LDH minimally elevated at 247 CPK WNL
With patient considered immunosuppressed - complete workup with UA, Chest XR, covid-19 and influenza PCR
Doxycycline pending further results
follow CBC
#Coag neg staph in Bcx
one anaerobic bottle growing pathogen
most likely contaminant
Repeat Bcx on 06/25/25
Since afebrile, WBC improving - no immediate indication to switch Abx, pending further ID assessment
#Pancytopenia
Hematology consult
#Hypokalemia
repleted on admission
follow electrolytes
#MS
patient mentioned that some of her pains similar to her episodes of MS flare
Original Neurologist in [facility]
Neuro consult: hold Vumerity until seen by established neurologist
DVT ppx SCDs
Full code
I have spent at least 51 min reviewing chart, test results, communication with consultants and providing direct patient care
Anticipated Discharge: 24 - 48 hours
Subjective/Interval History
-
Date of Service: June 25, 2025
Objective Data
-
Labs:
Laboratory Results
06/25/25
07:43
WBC 3.4 L
Hgb 11.6 L
Hct 34.6 L
Plt Count 61 L D
Sodium 140
Potassium 4.1
Chloride 106
Carbon Dioxide 28
BUN 12
Creatinine 0.6
Glucose 100 H
Calcium 9.1
Total Bilirubin 0.5
AST 24
ALT 29
Alkaline Phosphatase 34 L
Vital Signs:
Vital Signs
Temp Pulse Resp BP Pulse Ox
97.8 F 76 18 105/71 97
06/25/25 07:35 06/25/25 07:35 06/25/25 07:35 06/25/25 07:35 06/25/25 07:35
I&O
06/24/25 06/25/25 06/26/25
06:59 06:59 06:59
Intake Total 240 / 240
Balance 240 / 240
Review of Systems
-
History Source: Patient
All other systems: Reviewed and negative
--- NOTE | 2025-06-25 14:41 | CM ---
Alert awake oriented patient who lives with her [place] 2 story home with 3 steps to enter and 13 steps to bed/bathroom. He is independent in driving and all ADLs. No adaptive devices.Observation letter given explained signed on chart.
[place] VN/No SNF hx
Pharmacy [facility]
PCP [facility]
PLAN Home no anticipated needs
[2025-06-25 15:20] VITALS: BP 115/72
--- NOTE | 2025-06-25 15:52 | W.PN.ID1 ---
Date of Service
Date of Service: June 25, 2025
Today's Communication
Continue doxycycline. See below�
Assessment / Plan
Fever
Leukopenia/febrile neutropenia
Positive blood culture; suspect contaminant
Hx MS
Recommendations:
Peripheral blood smear is negative for Babesia species.
Ehrlichia and Anaplasma serology and PCR is pending.
Patient has remained afebrile since presentation.
Continue with doxycycline. Would complete a 14 day course.
Follow white count and temperature curve. Repeat blood cultures for fever greater than 100.5 degrees.
����������������������������������������������������������
Chief Complaint
-: Fever
Subjective / Review of Systems
Patient seen and examined. Overall feels well.
Review of Systems: No Fever, No Chills and No Stiff Neck
Vital Signs / Physical Exam
Vital Signs
Vital Signs
Temp Pulse Resp BP Pulse Ox
98.6 F 78 16 115/72 97
06/25/25 15:20 06/25/25 15:20 06/25/25 15:20 06/25/25 15:20 06/25/25 15:20
Physical Exam
Constitutional: No Acute Distress, Well Developed, Comfortable and Non-toxic
Eyes: Sclera Anicteric
Cardiovascular: S1/S2; Negative S3/S4
Pulmonary: Non Labored
Gastrointestinal: Soft, Non Tender and Non Distended
Neurological: Awake and Alert
Psychological: Calm
Objective Data
Lab Data
Lab Results
06/25/25 07:43
06/25/25 07:43
Estimated Creat Clear 122 ml/min 06/25/25 07:43
Lactic Acid Cancelled 06/23/25 23:00
Total Bilirubin 0.5 mg/dl (0.2-1.3) 06/25/25 07:43
AST 24 U/L (14-36) 06/25/25 07:43
ALT 29 U/L (0-35) 06/25/25 07:43
Alkaline Phosphatase 34 U/L (38-126) L 06/25/25 07:43
Most recent labs reviewed.
Micro Results:
06/25/25 09:10 Blood Culture - Pending
Blood/Venous
06/25/25 08:42 Blood Culture - Pending
Blood/Venous
06/23/25 19:06 Blood Culture - Preliminary
Blood/Venous Positive culture in progress
Gram Stain - Preliminary
06/23/25 19:41 Blood Culture - Preliminary
Blood/Venous No Growth in 24 hours- Final report to follow
06/23/25 19:06 Blood Parasites Smear - Final
Blood/Venous No blood parasites seen.
06/24/25 08:03 Influenza Types A & B (CLAUDIO) - Final
Nasal Swab Negative for Influenza A & B, NAAT
Negative results must be combined with clinical observations
and patient history.
Nucleic Acid Amplification test (NAAT)performed on the
[employer] platform.
Care Review
Plan reviewed with: Physician (Resident)
[2025-06-25 23:00] VITALS: BP 109/63
[2025-06-26 03:35] LABS: ANA, IgG Reflex to HEp-2 None Detected (None Detected)
[2025-06-26 07:57] VITALS: BP 104/61
[2025-06-26 07:59] LABS: Hematocrit 34.5 % (37.0-47.0); Hemoglobin 11.6 g/dL (12.0-16.0); Mean Corp Hgb Conc. 33.6 g/dL (33.0-37.0); Mean Corpuscular Volume 85.0 fL (81.0-99.0); Platelet Count 76 10^3/uL (130-400); Red Cell Dist. Width 13.2 % (11.5-14.5)
[2025-06-26 08:30] LABS: ALT (SGPT) 29 U/L (0-35); AST (SGOT) 26 U/L (14-36); Albumin 4.1 g/dl (3.5-5.0); Alkaline Phosphatase 32 U/L (38-126); Blood Urea Nitrogen 16 mg/dl (7-17); Calcium 9.2 mg/dl (8.4-10.2); Carbon Dioxide 28 mmol/L (22-30); Chloride 105 mmol/L (98-107); Estimated Creatinine Clearance 122 ml/min; Glucose 88 mg/dl (70-99); Potassium 3.8 mmol/L (3.5-5.1); Sodium 139 mmol/L (135-145); Total Protein 6.7 g/dl (6.3-8.2); eGFR > 60.00
[2025-06-26] MEDS: VITAMIN D3 (cholecalciferol) 125 MCG PO (08:37)
[2025-06-26] MEDS: VIBRAMYCIN 100 MG PO (08:37)
[2025-06-26 10:14] LABS: Nucleated Red Blood Cells % 0 %
--- NOTE | 2025-06-26 10:14 | W.PN.HOSP.TC ---
Today's Communication/Plan
-
dc
Assessment / Plan
Assessment / Plan
40yo F with PMHx MS on Diroximel Fumarate, WOOD virus positive came with 3 days of generalized aches, nighttime sweats and fever without respiratory symptoms. Due to recent travel history to [facility] - concern brought up for tick-borne illness due
to leukopenia and thrombocytopenia findings. Improved on Docy. Lyme neg. STEFANIE screen neg. Single bottle of Bcx growing coag neg staph - agreed to be a contamination as per discussion with ID. Labs improving with resolved neutropenia
A/P:
#Fever, muscle aches, leukopenia, thrombocytopenia
Concern for tick borne illness: anaplasma, Ehrlichia, rickettsia serology pending
Parasite screen neg
Lyme Neg
LDH minimally elevated at 247 CPK WNL
With patient considered immunosuppressed - complete workup with UA, Chest XR, covid-19 and influenza PCR - neg
Doxycycline x2 weeks as per ID
follow CBC
#Coag neg staph in Bcx
one anaerobic bottle growing pathogen
most likely contaminant
Repeat Bcx on 06/25/25 - NTD
Since afebrile, WBC improving - no immediate indication to switch Abx, pending further ID assessment
#Pancytopenia
Hematology consult - outpatient follow up for CBC and if persistent - might need BM biopsy
#Hypokalemia
repleted on admission
follow electrolytes
#MS
patient mentioned that some of her pains similar to her episodes of MS flare
Original Neurologist in [place]
Neuro consult: hold Vumerity until seen by established neurologist
DVT ppx SCDs
Full code
I have spent at least 36 min reviewing chart, test results, communication with consultants and providing direct patient care
Anticipated Discharge: Today
Subjective/Interval History
-
Date of Service: June 26, 2025
Objective Data
-
Labs:
Laboratory Results
06/26/25
07:04
WBC 5.0
Hgb 11.6 L
Hct 34.5 L
Plt Count 76 L D
Sodium 139
Potassium 3.8
Chloride 105
Carbon Dioxide 28
BUN 16
Creatinine 0.6
Glucose 88
Calcium 9.2
Total Bilirubin 0.5
AST 26
ALT 29
Alkaline Phosphatase 32 L
Vital Signs:
Vital Signs
Temp Pulse Resp BP Pulse Ox
97.3 F 77 17 104/61 100
06/26/25 07:57 06/26/25 07:57 06/26/25 07:57 06/26/25 07:57 06/26/25 07:57
I&O
06/25/25 06/26/25 06/27/25
06:59 06:59 06:59
Intake Total 240 / 240 720 / 720
Balance 240 / 240 720 / 720
Review of Systems
-
History Source: Patient
All other systems: Reviewed and negative
Physical Exam
-
General: Comfortable
HEENT: Normocephalic
Neuro: Awake, Alert, Oriented and AO x 3
Psych: Calm
--- NOTE | 2025-06-26 10:35 | W.DCSUMMARY ---
Discharge Summary
Discharge Data
Date of Admission: 06/23/25
Date of Discharge: 06/26/25
-
Pending Results: Yes
Additional Pending Results:
Bcx, Ehrlichia and Anaplasma PCR
Hospital Course
40yo F with PMHx MS on Diroximel Fumarate, WOOD virus positive came with 3 days of generalized aches, nighttime sweats and fever without respiratory symptoms. Due to recent travel history to [facility] - concern brought up for tick-borne illness due
to leukopenia and thrombocytopenia findings. Improved on Docy. Lyme neg. STEFANIE screen neg. Single bottle of Bcx growing coag neg staph - agreed to be a contamination as per discussion with ID. Labs improving with resolved neutropenia. As per agreement
with ID - medically stable to be d/c home on 2 weeks doxy ( results of Ehrlichia or Anaplasma PCR will not alret the mgmt) - precautions for direct sunlight and calcium supplements provided. Weekly CBC with PCP recommended as per call center coordinator
I have spent at least 36 min reviewing chart, test results, communication with consultants and providing direct patient care
Patient was managed for:
#Fever, muscle aches, leukopenia, thrombocytopenia
#Coag neg staph in Bcx
#Pancytopenia
#Hypokalemia
#MS
Discharge Plan
-
Patient Disposition: Home (Routine Discharge)
Discharge Diagnosis/Procedures: tick borne illness
Diet: Regular
Activity: As tolerated
Blood Work: CBC weekly with family doctor for pancytopenia
Referrals:
NONE,* [Family Provider, Internal Medicine]
Blayne Rudolph MD [Active, Hematology / Oncology] - in two to three weeks
Referral Note: repeat CBC for pancytopenia
Additional Discharge Medication Instructions: hold Vumerity until seen by established neurologist
Avoid direct sunlight, calcium supplements and multivitamins while on Doxycycline
Prescriptions:
New
doxycycline hyclate 100 mg Capsule
100 mg PO Q12 Qty: 26 0RF
Continued
ibuprofen [Advil] 200 mg Tablet
400 mg PO Q6HPRN PRN (Reason: mild pain)
cholecalciferol (vitamin D3) [Vitamin D3] 125 mcg (5,000 unit) Tablet
125 mcg PO DAILY
Held
Vumerity 231 mg Capsule,Delayed Release(Dr/Ec)
462 mg PO BID
Hold Instructions: Until seen by neurologist
Discharge Orders:
Discharge Patient (As Directed); Ordered 06/26/25
Ordered By: Cleveland Bills
Discharge Date and Time
Print Language: ARABIC
--- NOTE | 2025-06-26 12:09 | CM ---
chart reviewed
IMM n/a
discharge to home today
PLAN: home, no needs
[2025-06-27 03:34] LABS: RMSF IgG Antibodies <1:64 (<1:64); RMSF IgM Antibodies <1:64 (<1:64)
== END 2025-06-26 11:20 | disposition home or self-care (01) ==
LOC: 3 WEST ACU 22:04
PROVIDERS: ADMITTING PHYSICIAN Internal Medicine; ATTENDING PHYSICIAN Internal Medicine; CONSULT PHYSICIAN Internal Medicine Hematology & Oncology; CONSULT PHYSICIAN Internal Medicine Infectious Disease; CONSULT PHYSICIAN Psychiatry & Neurology Neurology; EMERGENCY PHYSICIAN Emergency Medicine
DX: A93.8 Other specified arthropod-borne viral fevers (principal); D61.818 Other pancytopenia; G35 Multiple sclerosis; E87.6 Hypokalemia; Z11.52 Encounter for screening for COVID-19
CPT/HCPCS: 71046; 80048; 80053; 81003; 81015; 82306; 82550; 82607; 82728; 82746; 83605; 83615; 83735; 85025; 85027; 86038; 86618; 86757; 87015; 87040; 87150; 87205; 87207; 87468; 87484; 87502; 87798; 87811; 93005; 99285; G0378